=== PATIENT | female | born 1955 | race African-American/Black ===

== ENCOUNTER 2016-11-06 11:19 | Emergency (ER) | payer OTHER ==
[~2016-11-06] VITALS: Ht 160 cm; Wt 79.8 kg
[2016-11-06] MEDS ORDERED: LISINOPRIL20 MG ORAL (11:41)
[2016-11-06] MEDS ORDERED: ATORVASTATIN CA40 MG ORAL (11:41)
[2016-11-06] MEDS ORDERED: HYDROCHLOROTHIA25 MG ORAL (11:41)
[2016-11-06] MEDS ORDERED: ASPIR 8181 MG ORAL (11:41)
[2016-11-06] MEDS ORDERED: DILTIAZEM 24HR120 M1 ORAL (11:41)
[2016-11-06] MEDS ORDERED: CARVEDILOL6.25 MG ORAL (11:41)
[2016-11-06] MEDS ORDERED: METFORMIN HCL500 M1 ORAL (11:41)
[2016-11-06] MEDS ORDERED: NISOLDIPINE34 MG ORAL (11:41)
[2016-11-06 12:25] LABS: APPEARANCE,URINE CLEAR; KETONES,URINE NEGATIVE (NEGATIVE); LEUKOCYTE ESTERASE ,URINE NEGATIVE (NEGATIVE); NITRITE,URINE NEGATIVE (NEGATIVE); PH,URINE 6 (4.5-8.0); PROTEIN,URINE 2+ (NEGATIVE); UROBILINOGEN,URINE NORMAL MG/DL (0.0-1.0)
[2016-11-06] MEDS ORDERED: Miralax 17gm pkt ORAL ONE (12:45)
--- NOTE | 2016-11-06 13:19 | Emergency Room Report ---
History of Present Illness General Chief Complaint: Pain Source: Patient Present Illness HPI 61-year-old female presents to emergency Department complaining of one week of dysuria with increased frequency. Patient also reports bilateral flank pain described as aching rated as 6/10 in severity. Patient also reports increasing constipation patient states that typically she goes once per day however she has been going once every 2-3 days now. Patient denies abdominal pain denies abdominal distention denies nausea vomiting or diarrhea patient denies recent travel or ill contacts patient denies fevers or chills. Denies hematuria, or discharge. denies trauma or fall. Denies CP, Palpitations, LOC, AMS, dizziness , Changes in Vision, Sensation, paresthesias, or a sudden severe headache. Allergies: Coded Allergies: No Known Allergies (Unverified , 11/06/16) Patient History Past Medical History: see triage record Past Surgical History: none Pertinent Family History: none Now: No Immunizations: UTD Reviewed Nursing Documentation: PMH: Agreed, PSxH: Agreed Nursing Documentation-PMH Past Medical History: No History, Except For Hx Hypertension: Yes Hx Asthma: Yes Hx Diabetes: Yes Review of Systems All Other Systems: negative except mentioned in HPI Physical Exam Vital Signs Date Time Temp Pulse Resp B/P Pulse Ox O2 Delivery O2 Flow Rate FiO2 11/06/16 11:35 97.5 90 20 187/85 98 Room Air Sp02 EP Interpretation: reviewed, normal General Appearance: no apparent distress, alert, GCS 15, non-toxic Head: normocephalic, atraumatic Eyes: bilateral eye PERRL, bilateral eye normal inspection ENT: hearing grossly normal, normal pharynx, no angioedema, normal voice Neck: full range of motion, supple/symm/no masses Respiratory: chest non-tender, lungs clear, normal breath sounds, speaking full sentences Cardiovascular #1: regular rate, rhythm, no edema Gastrointestinal: normal bowel sounds, non tender, soft, no mass, non-distended , no guarding, no rebound Rectal: deferred Genitourinary: normal inspection, no CVA tenderness Musculoskeletal: back normal, gait/station normal, normal range of motion, non- tender, other - Negative [place] signs, Negative MacBurney's sign, No Peritoneal signs. Neurologic: alert, oriented x3, responsive, motor strength/tone normal, sensory intact, speech normal Psychiatric: judgement/insight normal, memory normal, mood/affect normal, no suicidal/homicidal ideation Skin: normal color, no rash, warm/dry, well hydrated Lymphatic: no adenopathy Medical Decision Making PA Attestation Dr. Winkler is my supervising Physician whom patient management has been discussed with. Diagnostic Impression: Primary Impression: Flank pain Additional Impression: Constipation Qualified Codes: K59.01 - Slow transit constipation ER Course 61-year-old female presents to emergency Department complaining of one week of dysuria with increased frequency. Patient also reports bilateral flank pain described as aching rated as 6/10 in severity. Patient also reports increasing constipation patient states that typically she goes once per day however she has been going once every 2-3 days now. Patient denies abdominal pain denies abdominal distention denies nausea vomiting or diarrhea patient denies recent travel or ill contacts patient denies fevers or chills. Denies hematuria, or discharge. denies trauma or fall. -reports hx of DM. Ddx considered but are not limited to UTi , Pyelo, STI, Stone, Cystitis, constipation, slow transit, obstruction, mass. Vital signs: are WNL, pt. is afebrile H&PE are most consistent with UTI , and mild constipation, no PE signs to suggest obstruction. ORDERS: - UA labs are attached : no evidence of acute infection, no wbc's, no rbc's not suggestive for stone. ED INTERVENTIONS: -17gm Miralax PO DISCHARGE: At this time pt. is stable for d/c to home. Will provide printed patient care instructions, and any necessary prescriptions. Care plan and follow up instructions have been discussed with the patient prior to discharge. Labs Test 11/06/16 11:42 Urine Color Pale yellow Urine Appearance Clear Urine pH 6 (4.5-8.0) Urine Specific [place] 1.010 (1.005-1.035) Urine Protein 2+ (NEGATIVE) Urine Glucose (UA) 3+ (NEGATIVE) Urine Ketones Negative (NEGATIVE) Urine Occult Blood Negative (NEGATIVE) Urine Nitrite Negative (NEGATIVE) Urine Bilirubin Negative (NEGATIVE) Urine Urobilinogen Normal MG/DL (0.0-1.0) Urine Leukocyte Esterase Negative (NEGATIVE) Urine RBC 0-2 /HPF (0 - 2) Urine WBC 0-2 /HPF (0 - 2) Urine Squamous Epithelial Cells Occasional /LPF Urine Bacteria Few /HPF (NONE) Last Vital Signs Date Time Temp Pulse Resp B/P Pulse Ox O2 Delivery O2 Flow Rate FiO2 11/06/16 11:35 97.5 90 20 187/85 98 Room Air Disposition: HOME, SELF-CARE Condition: Stable Scripts Phenazopyridine Hcl* (PYRIDIUM*) 100 Mg Tablet 100 MG ORAL THREE TIMES A DAY for 5 Days, #15 TAB Prov: Ly Beckett 11/06/16 Docusate Sodium* (COLACE*) 100 Mg Capsule 100 MG ORAL THREE TIMES A DAY, #90 CAP Prov: Ly Beckett 11/06/16 Referrals: NON PHYSICIAN (PCP) Patient Instructions: Flank Pain, [id number] Additional Instructions: Take medications as directed. Follow up with PCP in 3-5 days Return sooner to ED if new symptoms occur, or current symptoms become worse. - Please note that this Emergency Department Report was dictated using [employer] coordinator technology software, occasionally this can lead to erroneous entry secondary to interpretation by the dictation equipment. Ly Beckett Nov 06, 2016 13:19
[2016-11-06 13:29] LABS: BACTERIA,URINE FEW /HPF; RBC,URINE 0-2 /HPF (0 - 2); SQUAMOUS EPITHELIAL CELL,UR OCCASIONAL /LPF (NONE/OCC); WBC,URINE 0-2 /HPF (0 - 2)
[2016-11-06] MEDS ORDERED: COLACE100 MG ORAL (13:40)
[2016-11-06] MEDS ORDERED: PHENAZOPYRIDIN100 MG ORAL (13:40)
[2016-11-06 14:00] VITALS: BP 165/85
== END 2016-11-06 14:00 | disposition home or self-care (01) ==
LOC: EMR 12:10
DX: K59.01 Slow transit constipation (principal); R30.0 Dysuria; J45.909 Unspecified asthma, uncomplicated; I10 Essential (primary) hypertension; E11.9 Type 2 diabetes mellitus without complications
CPT/HCPCS: 81003; 99284